=== PATIENT | female | born 1985 | race Two or more races ===

== ENCOUNTER 2020-08-02 19:22 | Inpatient (IN) | payer BC, OTHER ==
[~2020-08-02] VITALS: Ht 154.9 cm; Wt 70.9 kg
[2020-08-02] MEDS ORDERED: SODIUM CHLORIDE FLUSH 10ML SYR IVF ONE (20:00)
--- NOTE | 2020-08-02 21:11 | NUR ---
LAB CALLED RESULTED CRITICAL HEMOGLOBIN AND HCT; REPORT TO PROVIDE MD ZAMORANO. PATIENT WILL BE ROOMED AND LABS RECOLLECTED. PRIMARY RN JOAO AWARE.
[2020-08-02 22:33] LABS: MEAN CORPUSCULAR HGB CONC 35.4 g/dL (32.4-35.8); MEAN PLATELET VOLUME 8.5 fL (7.4-10.4); RED BLOOD COUNT 1.14 x10^6/uL (3.82-5.3); RED CELL DISTRIBUTION WIDTH 18.1 % (9.6-15.2)
[2020-08-02 22:36] LABS: ANION GAP 5 mmol/L (5-15); CALCIUM 8.8 mg/dL (8.5-10.1); CHLORIDE 111 mmol/L (98-107)
[2020-08-02 22:40] LABS: PLATELET COUNT 18 x10^3/uL (130-400)
--- NOTE | 2020-08-02 22:40 | NUR ---
PT TO ROOM FROM LOBBY
[2020-08-02 22:43] LABS: ALANINE AMINOTRANSFERASE 25 U/L (12-78); ALKALINE PHOSPHATASE 69 U/L (45-117); BILIRUBIN,TOTAL 0.7 mg/dL (0.2-1.0); CREATININE 0.72 mg/dL (0.55-1.02); TOTAL PROTEIN 7.4 g/dL (6.4-8.2)
--- NOTE | 2020-08-02 22:45 | NUR ---
patient arrives to the er with sob and weakness that began around , roughly two weeks ago. she's been having racing heart beat and some sob. she is in bed, rails up, on monitor.
[2020-08-02 22:59] LABS: MD YES
[2020-08-02] MEDS ORDERED: ACETAMINOPHEN 500 MG TABLET PO ONE (23:00)
--- NOTE | 2020-08-02 23:00 | NUR ---
placed on two liters nc
[2020-08-02 23:03] LABS: SEG#(MANUAL) 0.35 x10^3/uL (1.8-6.8); SEGS% (MANUAL) 15 % (42-75)
[2020-08-02 23:04] LABS: EOS#(MANUAL) 0.02 x10^3/uL (0.0-0.4); EOS% (MANUAL) 1 % (1-7); LYMPH#(MANUAL) 1.89 x10^3/uL (1-3.4); LYMPHS% (MANUAL) 82 % (22-44); MONOS#(MANUAL) 0.05 x10^3/uL (0.3-2.7); MONOS% (MANUAL) 2 % (2-9)
[2020-08-02 23:05] LABS: <PLATELET ESTIMATE> DECREASED; <PLT MORPHOLOGY> NORMAL PLT MORPH; ANISOCYTOSIS 2+; HYPOCHROMIA 2+; MICROCYTOSIS 2+; OVALOCYTES 1+; TEAR DROPS 1+
[2020-08-02 23:30] LABS: ABSOLUTE RETICS # 0.024 x10^6/uL (0.5-2.5); MEAN CORPUSCULAR HEMOGLOBIN 39.2 pg (27.0-34.8); MEAN CORPUSCULAR HGB CONC 35.8 g/dL (32.4-35.8); MEAN PLATELET VOLUME 8.7 fL (7.4-10.4); RED BLOOD COUNT 1.12 x10^6/uL (3.82-5.3); RED CELL DISTRIBUTION WIDTH 17.9 % (9.6-15.2); RETICULOCYTE COUNT % 2.16 % (0.5-1.5)
[2020-08-02 23:33] LABS: PLATELET COUNT 18 x10^3/uL (130-400)
[2020-08-02 23:34] LABS: MD YES
--- NOTE | 2020-08-02 23:34 | NUR ---
PATIENT CRITICAL LAB H/H AND PLATELETS RELAYED TO MD, THEY REMAINED LOW ON REDRAW.
[2020-08-02 23:58] LABS: SEG#(MANUAL) 0.21 x10^3/uL (1.8-6.8); SEGS% (MANUAL) 9 % (42-75)
[2020-08-02 23:59] LABS: ANISOCYTOSIS 2+; HYPOCHROMIA 2+; LYMPHS% (MANUAL) 87 % (22-44); MICROCYTOSIS 2+; MONOS#(MANUAL) 0.09 x10^3/uL (0.3-2.7); MONOS% (MANUAL) 4 % (2-9); OVALOCYTES 1+; TEAR DROPS 1+
[2020-08-03] VITALS (14 sets, daily range): BP systolic 97–115; BP diastolic 56–75
[2020-08-03] LABS: <PLATELET ESTIMATE> DECREASED; <PLT MORPHOLOGY> NORMAL PLT MORPH
--- NOTE | 2020-08-03 00:01 | NUR ---
report recieved from [facility]. pt resting in bed all monitors in place, pt alert/oriented, states no needs at this time
--- NOTE | 2020-08-03 00:25 | NUR ---
CALL RECIEVED FROM BLOOD BANK ASKING IF WE REALLY NEED IRRADIATED BLOOD FOR PT, BECAUSE IT HAS TO BE MADE AND UNSURE HOW LONG IT WILL TAKE. MD IS CURRENTLY AT CODE AND UNABLE TO ANSWER QUESTION, PA ON CASE ASKED AND SHE STATED TO WAIT FOR MD TO COME BACK. WILL FOLLOW UP CESARIO
[2020-08-03 00:36] LABS: INTERNATIONAL NORMALIZED RATIO 1.01 (0.93-1.1); PROTHROMBIN TIME 10.7 Seconds (9.6-11.5)
--- NOTE | 2020-08-03 01:35 | NUR ---
SEE BLOOD TRANSFUSION DOCUMENTION FOR RECENT VITALS.
--- NOTE | 2020-08-03 01:56 | NUR ---
REPORT GIVEN TO LOGAN GARCIA. PT AWARE AND ACCEPTING OF POC.
[2020-08-03] MEDS ORDERED: POLYETHYLENE GLYCOL 17 GM PACKET PO PRN (04:30)
[2020-08-03] MEDS ORDERED: ONDANSETRON ODT 4 MG PO PRN (04:30)
[2020-08-03] MEDS ORDERED: PROMETHAZINE 25 MG/ML, 1ML IM PRN (04:30)
[2020-08-03] MEDS ORDERED: BISACODYL 10 MG SUPP PR PRN (04:30)
[2020-08-03] MEDS ORDERED: ONDANSETRON 2MG/ML, 2ML IVPush PRN (04:30)
[2020-08-03] MEDS ORDERED: morphine SULFATE 10 MG/ML, 1ML IVPush PRN (04:30)
[2020-08-03] MEDS ORDERED: DOCUSATE 100 MG CAPSULE PO PRN (04:30)
[2020-08-03] MEDS ORDERED: OXYcodone IR 5MG TABLET PO PRN (04:30)
[2020-08-03] MEDS ORDERED: ACETAMINOPHEN 325 MG TABLET PO PRN (04:30)
[2020-08-03] MEDS: D5%-0.45% NACL 1,000 ML IV SCH ×2 (05:45→15:35)
[2020-08-03 08:09] LABS: FREE T4 (FREE THYROXINE) 0.97 ng/dL (0.76-1.46)
[2020-08-03 10:58] LABS: BASOPHILS % (AUTO) 0 % (0-1); EOSINOPHILS % (AUTO) 0 % (1-7); LYMPHOCYTES % (AUTO) 80 % (22-44); MEAN CORPUSCULAR HEMOGLOBIN 34.2 pg (27.0-34.8); MEAN CORPUSCULAR HGB CONC 35.9 g/dL (32.4-35.8); MEAN PLATELET VOLUME 8.8 fL (7.4-10.4); MONOCYTES % (AUTO) 4 % (2-9); NEUTROPHILS % (AUTO) 16 % (42-75); RED BLOOD COUNT 2.16 x10^6/uL (3.82-5.3); RED CELL DISTRIBUTION WIDTH 21.3 % (9.6-15.2)
[2020-08-03 12:06] LABS: PLATELET COUNT 14 x10^3/uL (130-400)
[2020-08-03 12:08] LABS: MD SCAN
[2020-08-03 12:53] LABS: MICROSCOPIC NOT IND
[2020-08-03 19:37] LABS: MEAN CORPUSCULAR HEMOGLOBIN 34.6 pg (27.0-34.8); MEAN CORPUSCULAR HGB CONC 35.9 g/dL (32.4-35.8); MEAN PLATELET VOLUME 8.4 fL (7.4-10.4); RED CELL DISTRIBUTION WIDTH 21.6 % (9.6-15.2)
[2020-08-03 19:49] LABS: PLATELET COUNT 16 x10^3/uL (130-400)
[2020-08-03 19:50] LABS: MD YES
[2020-08-03 22:13] LABS: SEG#(MANUAL) 0.24 x10^3/uL (1.8-6.8); SEGS% (MANUAL) 15 % (42-75)
[2020-08-03 22:14] LABS: BAND#(MANUAL) 0.02 x10^3/uL; BANDS%(MANUAL) 1 % (0-7); LYMPH#(MANUAL) 1.26 x10^3/uL (1-3.4); LYMPHS% (MANUAL) 79 % (22-44); MONOS#(MANUAL) 0.06 x10^3/uL (0.3-2.7); MONOS% (MANUAL) 4 % (2-9); MYELOCYTES# (MANUAL) 0.02 x10^3/uL (0-0); MYELOCYTES% (MANUAL) 1 % (0-0)
[2020-08-03 22:20] LABS: OVALOCYTES 1+; POLYCHROMASIA 1+; ROULEAUX 1+; TEAR DROPS 1+
[2020-08-03 22:21] LABS: <PLATELET ESTIMATE> DECREASED; <PLT MORPHOLOGY> QNS FOR PLT MORPH
[2020-08-04 01:24] VITALS: BP 102/64
[2020-08-04 06:18] LABS: MEAN CORPUSCULAR HGB CONC 35.7 g/dL (32.4-35.8); MEAN PLATELET VOLUME 8.8 fL (7.4-10.4); RED BLOOD COUNT 2.07 x10^6/uL (3.82-5.3)
[2020-08-04 06:31] LABS: ALBUMIN 3.4 g/dL (3.4-5.0); ANION GAP 5 mmol/L (5-15); CALCIUM 8.2 mg/dL (8.5-10.1); CHLORIDE 113 mmol/L (98-107)
[2020-08-04 06:32] VITALS: BP 100/64
[2020-08-04 06:34] LABS: ALANINE AMINOTRANSFERASE 20 U/L (12-78); ALKALINE PHOSPHATASE 60 U/L (45-117); BILIRUBIN,TOTAL 0.8 mg/dL (0.2-1.0); CHOL/HDL RATIO 2.8; CHOLESTEROL, TOTAL 99 mg/dL (140-239); CREATININE 0.74 mg/dL (0.55-1.02); HDL CHOL % 35 % (28-40); HDL CHOLESTEROL (DIRECT) 35 mg/dL (40-60); LDL CHOLESTEROL,CALCULATED 52 mg/dL (54-169); LDL/HDL RATIO 1.5 (0.5-3.0); TOTAL PROTEIN 6.4 g/dL (6.4-8.2); TRIGLYCERIDES 58 mg/dL (50-200); VLDL CHOLESTEROL 12 mg/dL (0-25)
[2020-08-04 06:35] LABS: PLATELET COUNT 14 x10^3/uL (130-400)
[2020-08-04 06:57] LABS: MD YES
[2020-08-04 06:59] LABS: SEG#(MANUAL) 0.24 x10^3/uL (1.8-6.8); SEGS% (MANUAL) 14 % (42-75)
[2020-08-04 07:02] LABS: ANISOCYTOSIS 1+; LYMPH#(MANUAL) 1.39 x10^3/uL (1-3.4); LYMPHS% (MANUAL) 82 % (22-44); MONOS#(MANUAL) 0.07 x10^3/uL (0.3-2.7); MONOS% (MANUAL) 4 % (2-9); OVALOCYTES 1+
[2020-08-04 07:03] LABS: <PLATELET ESTIMATE> DECREASED; <PLT MORPHOLOGY> QNS FOR PLT MORPH
[2020-08-04] MEDS ORDERED: LIDOCAINE 1%, 10ML ONE (08:38)
[2020-08-04] MEDS ORDERED: FENTANYL PF 100 MCG/2ML ONE (08:52)
[2020-08-04] MEDS ORDERED: MIDAZOLAM 1 MG/ML, 5ML ONE (08:52)
[2020-08-04] MEDS ORDERED: NALOXONE 1 MG/ML, 2ML ONE (08:52)
[2020-08-04] MEDS ORDERED: FLUMAZENIL 0.1 MG/1 ML, 5ML ONE (08:52)
[2020-08-04 13:39] VITALS: BP 105/62
[2020-08-04 15:14] LABS: MEAN CORPUSCULAR HEMOGLOBIN 34.1 pg (27.0-34.8); MEAN CORPUSCULAR HGB CONC 35.2 g/dL (32.4-35.8); MEAN PLATELET VOLUME 8.4 fL (7.4-10.4); RED BLOOD COUNT 2.09 x10^6/uL (3.82-5.3); RED CELL DISTRIBUTION WIDTH 20.9 % (9.6-15.2)
[2020-08-04 15:44] LABS: MD YES; PLATELET COUNT 17 x10^3/uL (130-400)
[2020-08-04 16:36] LABS: SEG#(MANUAL) 0.28 x10^3/uL (1.8-6.8); SEGS% (MANUAL) 20 % (42-75)
[2020-08-04 16:37] LABS: LYMPH#(MANUAL) 0.98 x10^3/uL (1-3.4); LYMPHS% (MANUAL) 70 % (22-44); MONOS#(MANUAL) 0.14 x10^3/uL (0.3-2.7); MONOS% (MANUAL) 10 % (2-9)
[2020-08-04 16:38] LABS: <PLATELET ESTIMATE> DECREASED; <PLT MORPHOLOGY> NORMAL PLT MORPH; ANISOCYTOSIS 2+; POLYCHROMASIA 1+
[2020-08-04 18:51] VITALS: BP 105/69
[2020-08-04 20:53] LABS: MEAN CORPUSCULAR HGB CONC 35.6 g/dL (32.4-35.8); MEAN PLATELET VOLUME 8.8 fL (7.4-10.4); RED BLOOD COUNT 2.26 x10^6/uL (3.82-5.3); RED CELL DISTRIBUTION WIDTH 20.4 % (9.6-15.2)
[2020-08-04 20:59] LABS: PLATELET COUNT 16 x10^3/uL (130-400)
[2020-08-04 21:37] LABS: MD YES
[2020-08-04 21:44] LABS: LYMPH#(MANUAL) 1.22 x10^3/uL (1-3.4); LYMPHS% (MANUAL) 81 % (22-44); MONOS#(MANUAL) 0.05 x10^3/uL (0.3-2.7); MONOS% (MANUAL) 3 % (2-9); SEG#(MANUAL) 0.24 x10^3/uL (1.8-6.8); SEGS% (MANUAL) 16 % (42-75)
[2020-08-04 21:45] LABS: ANISOCYTOSIS 1+; POLYCHROMASIA 1+
[2020-08-04 21:46] LABS: <PLATELET ESTIMATE> DECREASED; <PLT MORPHOLOGY> NORMAL PLT MORPH; TEAR DROPS 1+
[2020-08-05 01:50] VITALS: BP 95/58
[2020-08-05 05:37] LABS: MEAN CORPUSCULAR HEMOGLOBIN 34.1 pg (27.0-34.8); MEAN CORPUSCULAR HGB CONC 35.3 g/dL (32.4-35.8); MEAN PLATELET VOLUME 8.3 fL (7.4-10.4); RED BLOOD COUNT 2.22 x10^6/uL (3.82-5.3); RED CELL DISTRIBUTION WIDTH 20.5 % (9.6-15.2)
[2020-08-05 05:44] LABS: PLATELET COUNT 15 x10^3/uL (130-400)
[2020-08-05 06:12] LABS: MD YES
[2020-08-05 06:15] LABS: LYMPH#(MANUAL) 1.44 x10^3/uL (1-3.4); LYMPHS% (MANUAL) 80 % (22-44); MONOS#(MANUAL) 0.05 x10^3/uL (0.3-2.7); MONOS% (MANUAL) 3 % (2-9); SEG#(MANUAL) 0.31 x10^3/uL (1.8-6.8); SEGS% (MANUAL) 17 % (42-75)
[2020-08-05 06:16] LABS: <PLATELET ESTIMATE> DECREASED; <PLT MORPHOLOGY> NORMAL PLT MORPH; ANISOCYTOSIS 1+; OVALOCYTES 1+; TEAR DROPS 1+
[2020-08-05 07:54] VITALS: BP 104/63
[2020-08-05 13:47] VITALS: BP 110/60
[2020-08-05 20:06] VITALS: BP 109/65
[2020-08-06 00:58] VITALS: BP 100/55
[2020-08-06 06:49] VITALS: BP 98/58
[2020-08-06 07:35] LABS: MEAN CORPUSCULAR HEMOGLOBIN 34.1 pg (27.0-34.8); MEAN CORPUSCULAR HGB CONC 35.1 g/dL (32.4-35.8); MEAN PLATELET VOLUME 8.3 fL (7.4-10.4); RED BLOOD COUNT 2.16 x10^6/uL (3.82-5.3)
[2020-08-06 07:36] LABS: ANION GAP 5 mmol/L (5-15); CALCIUM 8.6 mg/dL (8.5-10.1); CHLORIDE 110 mmol/L (98-107)
[2020-08-06 09:59] LABS: MD YES; PLATELET COUNT 23 x10^3/uL (130-400)
[2020-08-06 10:05] LABS: LYMPH#(MANUAL) 1.25 x10^3/uL (1-3.4); LYMPHS% (MANUAL) 83 % (22-44); MONOS#(MANUAL) 0.02 x10^3/uL (0.3-2.7); MONOS% (MANUAL) 1 % (2-9); SEG#(MANUAL) 0.24 x10^3/uL (1.8-6.8); SEGS% (MANUAL) 16 % (42-75)
[2020-08-06 10:08] LABS: ANISOCYTOSIS 1+; OVALOCYTES 1+
[2020-08-06 10:09] LABS: <PLATELET ESTIMATE> DECREASED; <PLT MORPHOLOGY> NORMAL PLT MORPH
[2020-08-06 13:28] VITALS: BP 107/69
[2020-08-06] MEDS ORDERED: LEVOFLOXACIN 500 MG TABLET PO SCH (16:30)
[2020-08-06] MEDS ORDERED: ACYC-114 PO (16:45)
[2020-08-06] MEDS ORDERED: LEVO500T8 PO (16:45)
[2020-08-06] MEDS ORDERED: ACYCLOVIR 400 MG TABLET PO SCH (21:00)
== END 2020-08-06 18:46 | disposition home or self-care (01) | DRG 810 ==
LOC: ED 08-03 02:04 → EDIP 08-03 02:22 → 4NW 08-03 02:38
PROVIDERS: ADMIT Internal Medicine; ATTEND Internal Medicine
PROC: 30233N1 Transfusion of Nonautologous Red Blood Cells into Peripheral Vein, Percutaneous Approach (ICD-10-PCS; 2020-08-03)
PROC: 07DR3ZX Extraction of Iliac Bone Marrow, Percutaneous Approach, Diagnostic (ICD-10-PCS; principal; 2020-08-04)
DX: D61.818 Other pancytopenia (principal); K01.1 Impacted teeth; R53.81 Other malaise; Z20.828 Contact with and (suspected) exposure to other viral communicable diseases
CPT/HCPCS: 36415; 87806; 99285; J3490; 38222; 70450; 71045; 76700; 77012; 80048; 80053; 80061; 80074; 81003; 82607; 82728; 83036; 83540; 83550; 83615; 83735; 84439; 84443; 84466; 84703; 85014; 85018; 85025; 85045; 85060; 85097; 85610; 85730; 86747; 86850; 86880; 86900; 86923; 87040; 87635; 88237; 88264; 88280; 88305; 88311; 88313; 93005; 99156; 99157; G0378; J2250; J3010; G0475; J2310; P9040

== ENCOUNTER 2020-08-15 21:55 | Emergency (ER) | payer OTHER ==
[~2020-08-15] VITALS: Ht 154.9 cm; Wt 69.2 kg
[~2020-08-15 21:55] MED LIST: ACYC-114 PO; LEVO500T8 PO
[2020-08-15 23:06] LABS: MEAN CORPUSCULAR HEMOGLOBIN 33.3 pg (27.0-34.8); MEAN CORPUSCULAR HGB CONC 35.7 g/dL (32.4-35.8); MEAN PLATELET VOLUME 7.6 fL (7.4-10.4); PLATELET COUNT 82 x10^3/uL (130-400)
[2020-08-15 23:11] LABS: ALBUMIN 4.2 g/dL (3.4-5.0); ANION GAP 5 mmol/L (5-15); CALCIUM 9.2 mg/dL (8.5-10.1); CHLORIDE 108 mmol/L (98-107)
[2020-08-15 23:18] LABS: CREATININE 0.85 mg/dL (0.55-1.02); TROPONIN I < 0.015 ng/mL (0.000-0.045)
[2020-08-15 23:53] LABS: MD YES
[2020-08-16 00:02] LABS: BAND#(MANUAL) 0.03 x10^3/uL; BANDS%(MANUAL) 3 % (0-7); SEG#(MANUAL) 0.42 x10^3/uL (1.8-6.8); SEGS% (MANUAL) 38 % (42-75)
[2020-08-16 00:03] LABS: LYMPH#(MANUAL) 0.64 x10^3/uL (1-3.4); LYMPHS% (MANUAL) 58 % (22-44); MONOS#(MANUAL) 0.01 x10^3/uL (0.3-2.7); MONOS% (MANUAL) 1 % (2-9)
[2020-08-16 00:04] LABS: <PLATELET ESTIMATE> DECREASED; <PLT MORPHOLOGY> NORMAL PLT MORPH; ANISOCYTOSIS 1+; OVALOCYTES 1+; POLYCHROMASIA 1+
--- NOTE | 2020-08-16 00:06 | NUR ---
ALL TESTS RESULTED PT IS UP FOR RECHECK AT THIS TIME.
[2020-08-16 00:09] VITALS: BP 103/63
--- NOTE | 2020-08-16 00:31 | NUR ---
Patient given discharge instructions and they have confirmed that they understand the instructions. Patient ambulatory with steady gait.
== END 2020-08-16 00:42 | disposition home or self-care (01) ==
LOC: ED 08-16 00:13
DX: D61.9 Aplastic anemia, unspecified (principal); R07.2 Precordial pain; R06.00 Dyspnea, unspecified; R94.31 Abnormal electrocardiogram [ECG] [EKG]
CPT/HCPCS: 36415; 71045; 80048; 82040; 83880; 84484; 85025; 93005; 99285

== ENCOUNTER → 2020-08-31 | Outpatient (CLI) | payer OTHER | END | disposition home or self-care (01) | LOC: CVU 14:48 | PROVIDERS: ATTEND Internal Medicine Hematology & Oncology | DX: Z01.818 Encounter for other preprocedural examination (principal); D61.9 Aplastic anemia, unspecified | CPT/HCPCS: 93306 ==

== ENCOUNTER 2020-09-06 04:04 | Emergency (ER) | payer OTHER ==
[~2020-09-06] VITALS: Ht 154.9 cm; Wt 69.4 kg
--- NOTE | 2020-09-06 04:45 | NUR ---
Patient presents to ER c/o bleeding gums since noon yesterday. Patient has a hx of aplastic anemia. She states her last PLT count was 7 but normally her gums don't bleed. Patient denies any other symptoms aside from fatigue. Patient is in NAD. Respirations even and unlabored.
[2020-09-06 05:20] VITALS: BP 110/73
[2020-09-06 05:39] LABS: CHLORIDE 110 mmol/L (98-107)
[2020-09-06 05:46] LABS: ALANINE AMINOTRANSFERASE 21 U/L (12-78); ALBUMIN 4.2 g/dL (3.4-5.0); ALKALINE PHOSPHATASE 70 U/L (45-117); ANION GAP 5 mmol/L (5-15); BILIRUBIN,TOTAL 0.9 mg/dL (0.2-1.0); CALCIUM 9.2 mg/dL (8.5-10.1); CREATININE 0.73 mg/dL (0.55-1.02)
[2020-09-06 05:47] LABS: MEAN CORPUSCULAR HEMOGLOBIN 31.9 pg (27.0-34.8); MEAN CORPUSCULAR HGB CONC 36.5 g/dL (32.4-35.8); MEAN PLATELET VOLUME 8.9 fL (7.4-10.4); RED BLOOD COUNT 2.17 x10^6/uL (3.82-5.3); RED CELL DISTRIBUTION WIDTH 13.4 % (9.6-15.2)
[2020-09-06 06:03] LABS: PLATELET COUNT 7 x10^3/uL (130-400)
[2020-09-06 06:27] LABS: MD YES
[2020-09-06 06:33] LABS: EOS#(MANUAL) 0.02 x10^3/uL (0.0-0.4); EOS% (MANUAL) 2 % (1-7); LYMPH#(MANUAL) 1.09 x10^3/uL (1-3.4); LYMPHS% (MANUAL) 91 % (22-44); SEG#(MANUAL) 0.08 x10^3/uL (1.8-6.8); SEGS% (MANUAL) 7 % (42-75)
[2020-09-06 06:35] LABS: <PLATELET ESTIMATE> DECREASED; <PLT MORPHOLOGY> NORMAL PLT MORPH; ANISOCYTOSIS 1+; MICROCYTOSIS 1+; OVALOCYTES 1+
[2020-09-06 06:36] LABS: POLYCHROMASIA 1+
--- NOTE | 2020-09-06 06:57 | NUR ---
Report to LOGAN Woo. Patient care transferred.
--- NOTE | 2020-09-06 06:58 | NUR ---
RECEIVED REPORT FROM CESILIA FORD. PT LAYING ON GURNEY AWAKE & COMFORTABLE, RESPONDS APPROP TO STAFF, NAD, COMFORT MEASURES PROVIDED, CALL LIGHT WITHIN REACH.
--- NOTE | 2020-09-06 07:40 | NUR ---
Patient given discharge instructions and they have confirmed that they understand the instructions. Patient DC'd to infusion center via WC accompanied by Letitia (infusion nurse).
== END 2020-09-06 07:42 | disposition home or self-care (01) ==
LOC: ED 06:22
DX: D61.3 Idiopathic aplastic anemia (principal); K06.8 Other specified disorders of gingiva and edentulous alveolar ridge; D69.6 Thrombocytopenia, unspecified; D72.818 Other decreased white blood cell count
CPT/HCPCS: 36415; 80053; 85025; 99283

== ENCOUNTER 2021-01-21 15:34 | Inpatient (IN) | payer SELFPAY ==
[2021-01-21] VITALS (15 sets, daily range): BP systolic 113–124; BP diastolic 65–82
[~2021-01-21] VITALS: Ht 154.9 cm; Wt 74.9 kg
[~2021-01-21 15:34] MED LIST changes: -ACYC-114 PO; +ACYC-40 PO; +AMOX1TAB12 PO; +CYCL100C12 PO; +ELTR25TA PO; +ELTR50TA PO; +[UNRECOGNIZED DRUG - CODE] PO
[2021-01-21] MEDS ORDERED: SODIUM CHLORIDE FLUSH 10ML SYR IVF ONE (16:00)
[2021-01-21] MEDS ORDERED: SODIUM CHLORIDE 0.9% 1,000ML IVBOLUS ONE (16:00)
--- NOTE | 2021-01-21 16:06 | NUR ---
PT HERE FOR C/O SOB ON EXERTION X2 WEEKS, PT REPORTS HX ANEMIA AND BLOOD TRANSFUSIONS. PT ON ALL MONITORS. S/O OTHER AT BEDSIDE.
[2021-01-21 16:32] LABS: ALANINE AMINOTRANSFERASE 85 U/L (12-78); ALBUMIN 3.5 g/dL (3.4-5.0); ANION GAP 15 mmol/L (5-15); CALCIUM 8.4 mg/dL (8.5-10.1); CHLORIDE 105 mmol/L (98-107); CREATININE 0.78 mg/dL (0.55-1.02)
--- NOTE | 2021-01-21 16:32 | NUR ---
ATTEMPT FOR PIV X2 UNSUCCESSFUL. ADVANCED MANAGER AT BEDSIDE FOR U/S GUIDED PIV, PT NEEDS LAB REDRAW DO TO BLOOD CLOTTING PER LAB.
[2021-01-21 16:37] LABS: ALKALINE PHOSPHATASE 96 U/L (45-117); BILIRUBIN,TOTAL 0.8 mg/dL (0.2-1.0)
[2021-01-21 16:45] LABS: MEAN CORPUSCULAR HEMOGLOBIN 35.5 pg (27.0-34.8); MEAN CORPUSCULAR HGB CONC 36.4 g/dL (32.4-35.8); MEAN PLATELET VOLUME 7.6 fL (7.4-10.4); RED CELL DISTRIBUTION WIDTH 24.2 % (9.6-15.2)
[2021-01-21 16:48] LABS: MD YES; PLATELET COUNT 10 x10^3/uL (130-400)
[2021-01-21 17:15] LABS: BAND#(MANUAL) 0.02 x10^3/uL; BANDS%(MANUAL) 1 % (0-7); SEG#(MANUAL) 0.65 x10^3/uL (1.8-6.8); SEGS% (MANUAL) 27 % (42-75)
[2021-01-21 17:16] LABS: <PLATELET ESTIMATE> DECREASED; LYMPH#(MANUAL) 1.63 x10^3/uL (1-3.4); LYMPHS% (MANUAL) 68 % (22-44); MONOS% (MANUAL) 4 % (2-9)
[2021-01-21 17:17] LABS: <PLT MORPHOLOGY> NORMAL PLT MORPH
[2021-01-21 17:18] LABS: ANISOCYTOSIS 1+; HYPOCHROMIA 1+; MICROCYTOSIS 2+
[2021-01-21 17:19] LABS: OVALOCYTES 1+
--- NOTE | 2021-01-21 17:24 | NUR ---
[facility] TRANSFUSION INITIATED.
--- NOTE | 2021-01-21 17:39 | NUR ---
REPORT GIVEN TO MANOJ FORD.
[2021-01-21] MEDS ORDERED: ONDANSETRON ODT 4 MG PO PRN (20:00)
[2021-01-21] MEDS ORDERED: SUMATRIPTAN 25 MG TABLET PO PRN (20:00)
[2021-01-21] MEDS ORDERED: BISACODYL 10 MG SUPP PR PRN (20:00)
[2021-01-21] MEDS ORDERED: POLYETHYLENE GLYCOL 17 GM PACKET PO PRN (20:00)
[2021-01-22] VITALS (11 sets, daily range): BP systolic 103–123; BP diastolic 69–85
[2021-01-22] MEDS ORDERED: ACETAMINOPHEN 325 MG TABLET ONE (00:47)
[2021-01-22] MEDS ORDERED: DIPHENHYDRAMINE 25 MG CAPSULE PO ONE (01:00)
[2021-01-22] MEDS ORDERED: ACETAMINOPHEN 325 MG TABLET PO ONE (01:00)
[2021-01-22 06:41] LABS: MEAN CORPUSCULAR HEMOGLOBIN 30.3 pg (27.0-34.8); MEAN CORPUSCULAR HGB CONC 35.7 g/dL (32.4-35.8); MEAN PLATELET VOLUME 7.7 fL (7.4-10.4); RED BLOOD COUNT 2.39 x10^6/uL (3.82-5.3); RED CELL DISTRIBUTION WIDTH 14.3 % (9.6-15.2)
[2021-01-22 06:52] LABS: PLATELET COUNT 16 x10^3/uL (130-400)
[2021-01-22 06:53] LABS: MD YES
[2021-01-22 06:55] LABS: ALBUMIN 3.2 g/dL (3.4-5.0); ANION GAP 9 mmol/L (5-15); CHLORIDE 109 mmol/L (98-107)
[2021-01-22 06:58] LABS: ALANINE AMINOTRANSFERASE 105 U/L (12-78); ALKALINE PHOSPHATASE 103 U/L (45-117); BILIRUBIN,TOTAL 2.1 mg/dL (0.2-1.0); CREATININE 0.61 mg/dL (0.55-1.02); TOTAL PROTEIN 6.1 g/dL (6.4-8.2)
[2021-01-22 07:22] LABS: LYMPH#(MANUAL) 0.68 x10^3/uL (1-3.4); LYMPHS% (MANUAL) 75 % (22-44); MONOS#(MANUAL) 0.01 x10^3/uL (0.3-2.7); MONOS% (MANUAL) 1 % (2-9); SEG#(MANUAL) 0.22 x10^3/uL (1.8-6.8); SEGS% (MANUAL) 24 % (42-75)
[2021-01-22 07:23] LABS: <PLATELET ESTIMATE> DECREASED; <PLT MORPHOLOGY> NORMAL PLT MORPH; ANISOCYTOSIS 1+; HYPOCHROMIA 1+; MICROCYTOSIS 1+; OVALOCYTES 1+
[2021-01-22] MEDS: SENNA/DOCUSATE TABLET PO SCH (09:00)
[2021-01-23] VITALS (7 sets, daily range): BP systolic 107–116; BP diastolic 67–72
[2021-01-23] MEDS: SENNA/DOCUSATE TABLET PO SCH (09:00)
[2021-01-23 09:27] LABS: MEAN CORPUSCULAR HEMOGLOBIN 30.1 pg (27.0-34.8); MEAN CORPUSCULAR HGB CONC 35.8 g/dL (32.4-35.8); MEAN PLATELET VOLUME 8.7 fL (7.4-10.4); RED BLOOD COUNT 2.49 x10^6/uL (3.82-5.3); RED CELL DISTRIBUTION WIDTH 14.8 % (9.6-15.2)
[2021-01-23 09:48] LABS: MD YES; PLATELET COUNT 6 x10^3/uL (130-400)
[2021-01-23 09:54] LABS: ANISOCYTOSIS 1+; LYMPHS% (MANUAL) 69 % (22-44); MONOS#(MANUAL) 0.07 x10^3/uL (0.3-2.7); MONOS% (MANUAL) 5 % (2-9); OVALOCYTES 1+; SEG#(MANUAL) 0.34 x10^3/uL (1.8-6.8); SEGS% (MANUAL) 26 % (42-75)
[2021-01-23 09:56] LABS: MICROCYTOSIS 1+
[2021-01-23 09:57] LABS: <PLATELET ESTIMATE> DECREASED; <PLT MORPHOLOGY> NORMAL PLT MORPH
[2021-01-23] MEDS ORDERED: DIPHENHYDRAMINE 25 MG CAPSULE PO ONE (11:30)
[2021-01-23] MEDS ORDERED: ACETAMINOPHEN 325 MG TABLET PO ONE (11:30)
[2021-01-23 19:50] LABS: MICROSCOPIC AUTO
[2021-01-24] VITALS (10 sets, daily range): BP systolic 106–126; BP diastolic 67–83
[2021-01-24 05:08] LABS: ABSOLUTE RETICS # 0.018 x10^6/uL (0.5-2.5); ALBUMIN 3.1 g/dL (3.4-5.0); ANION GAP 5 mmol/L (5-15); CALCIUM 8.4 mg/dL (8.5-10.1); CHLORIDE 112 mmol/L (98-107); RED BLOOD COUNT 2.23 x10^6/uL (3.82-5.3); RETICULOCYTE COUNT % 0.82 % (0.5-1.5)
[2021-01-24 05:13] LABS: ALANINE AMINOTRANSFERASE 70 U/L (12-78); ALKALINE PHOSPHATASE 90 U/L (45-117); CREATININE 0.57 mg/dL (0.55-1.02); TOTAL PROTEIN 5.9 g/dL (6.4-8.2)
[2021-01-24 06:50] LABS: MEAN CORPUSCULAR HEMOGLOBIN 30.2 pg (27.0-34.8); MEAN CORPUSCULAR HGB CONC 35.8 g/dL (32.4-35.8); MEAN PLATELET VOLUME 9.2 fL (7.4-10.4); RED BLOOD COUNT 2.24 x10^6/uL (3.82-5.3)
[2021-01-24 06:54] LABS: MD YES; PLATELET COUNT 9 x10^3/uL (130-400)
[2021-01-24 07:33] LABS: LYMPH#(MANUAL) 1.19 x10^3/uL (1-3.4); LYMPHS% (MANUAL) 85 % (22-44); MONOS#(MANUAL) 0.06 x10^3/uL (0.3-2.7); MONOS% (MANUAL) 4 % (2-9); SEG#(MANUAL) 0.15 x10^3/uL (1.8-6.8); SEGS% (MANUAL) 11 % (42-75)
[2021-01-24 07:34] LABS: <PLATELET ESTIMATE> DECREASED; <PLT MORPHOLOGY> NORMAL PLT MORPH; ANISOCYTOSIS 1+; OVALOCYTES 1+
[2021-01-24] MEDS: SENNA/DOCUSATE TABLET PO SCH (09:00)
[2021-01-24] MEDS ORDERED: ACETAMINOPHEN 325 MG TABLET PO ONE (11:30)
[2021-01-24] MEDS ORDERED: DIPHENHYDRAMINE 25 MG CAPSULE PO ONE (11:30)
[2021-01-24] MEDS ORDERED: LEVOFLOXACIN 500 MG TABLET PO SCH (22:30)
[2021-01-24] MEDS: FLUCONAZOLE 200 MG TABLET PO SCH (23:21)
[2021-01-24] MEDS: ACYCLOVIR 400 MG TABLET PO SCH (23:21)
[2021-01-25] VITALS (8 sets, daily range): BP systolic 116–130; BP diastolic 73–88
[2021-01-25] MEDS: ACYCLOVIR 400 MG TABLET PO SCH ×2 (09:29→21:08)
[2021-01-25] MEDS: SENNA/DOCUSATE TABLET PO SCH (09:30)
[2021-01-25 09:31] LABS: MEAN CORPUSCULAR HEMOGLOBIN 30.1 pg (27.0-34.8); MEAN CORPUSCULAR HGB CONC 35.9 g/dL (32.4-35.8); RED BLOOD COUNT 2.86 x10^6/uL (3.82-5.3)
[2021-01-25 09:45] LABS: MD YES
[2021-01-25 09:50] LABS: <PLATELET ESTIMATE> DECREASED; <PLT MORPHOLOGY> QNS FOR PLT MORPH; ANISOCYTOSIS 1+; BAND#(MANUAL) 0.02 x10^3/uL; BANDS%(MANUAL) 2 % (0-7); LYMPH#(MANUAL) 0.97 x10^3/uL (1-3.4); LYMPHS% (MANUAL) 81 % (22-44); MONOS#(MANUAL) 0.08 x10^3/uL (0.3-2.7); MONOS% (MANUAL) 7 % (2-9); OVALOCYTES 1+; SEG#(MANUAL) 0.12 x10^3/uL (1.8-6.8); SEGS% (MANUAL) 10 % (42-75)
[2021-01-25 09:53] LABS: PLATELET COUNT 6 x10^3/uL (130-400)
[2021-01-25] MEDS: ACETAMINOPHEN 325 MG TABLET PO PRN (12:33)
[2021-01-25] MEDS: DIPHENHYDRAMINE 25 MG CAPSULE PO PRN (12:33)
[2021-01-25] MEDS: FLUCONAZOLE 200 MG TABLET PO SCH (23:05)
[2021-01-26 00:09] VITALS: BP 145/91
[2021-01-26 05:06] LABS: MEAN CORPUSCULAR HEMOGLOBIN 30.1 pg (27.0-34.8); MEAN CORPUSCULAR HGB CONC 35.8 g/dL (32.4-35.8); MEAN PLATELET VOLUME 7.4 fL (7.4-10.4); RED BLOOD COUNT 3.06 x10^6/uL (3.82-5.3); RED CELL DISTRIBUTION WIDTH 14.1 % (9.6-15.2)
[2021-01-26 05:54] LABS: MD YES; PLATELET COUNT 43 x10^3/uL (130-400)
[2021-01-26 06:14] LABS: LYMPH#(MANUAL) 1.39 x10^3/uL (1-3.4); LYMPHS% (MANUAL) 87 % (22-44); MONOS#(MANUAL) 0.05 x10^3/uL (0.3-2.7); MONOS% (MANUAL) 3 % (2-9); SEG#(MANUAL) 0.16 x10^3/uL (1.8-6.8); SEGS% (MANUAL) 10 % (42-75)
[2021-01-26 06:15] LABS: <PLATELET ESTIMATE> DECREASED; ANISOCYTOSIS 1+; OVALOCYTES 1+
[2021-01-26 06:16] LABS: <PLT MORPHOLOGY> NORMAL PLT MORPH
[2021-01-26 06:47] VITALS: BP 121/71
[2021-01-26] MEDS: SENNA/DOCUSATE TABLET PO SCH (08:33)
[2021-01-26] MEDS: ACYCLOVIR 400 MG TABLET PO SCH ×2 (09:17→20:41)
[2021-01-26 12:58] VITALS: BP 117/76
[2021-01-26 18:37] VITALS: BP 118/78
[2021-01-26] MEDS: FLUCONAZOLE 200 MG TABLET PO SCH (22:38)
[2021-01-27 00:19] VITALS: BP 132/85
[2021-01-27 05:49] LABS: MEAN PLATELET VOLUME 7.7 fL (7.4-10.4); RED BLOOD COUNT 3.25 x10^6/uL (3.82-5.3)
[2021-01-27 06:04] LABS: PLATELET COUNT 24 x10^3/uL (130-400)
[2021-01-27 06:22] LABS: MD YES
[2021-01-27 06:26] LABS: LYMPH#(MANUAL) 1.23 x10^3/uL (1-3.4); LYMPHS% (MANUAL) 82 % (22-44); MONOS#(MANUAL) 0.08 x10^3/uL (0.3-2.7); MONOS% (MANUAL) 5 % (2-9); SEGS% (MANUAL) 13 % (42-75)
[2021-01-27 06:27] LABS: <PLATELET ESTIMATE> DECREASED; <PLT MORPHOLOGY> NORMAL PLT MORPH; ANISOCYTOSIS 1+; OVALOCYTES 1+
[2021-01-27 07:30] VITALS: BP 113/75
[2021-01-27] MEDS: SENNA/DOCUSATE TABLET PO SCH (09:00)
[2021-01-27] MEDS: ACYCLOVIR 400 MG TABLET PO SCH ×2 (10:18→22:08)
[2021-01-27] MEDS ORDERED: MEDROXYPROGESTERONE ACETATE 150 MG/ML IM ONE (14:00)
[2021-01-27 15:46] VITALS: BP 107/70
[2021-01-27 19:21] VITALS: BP 124/80
[2021-01-27] MEDS: FLUCONAZOLE 200 MG TABLET PO SCH (22:07)
[2021-01-28] VITALS (7 sets, daily range): BP systolic 107–129; BP diastolic 64–80
[2021-01-28 05:40] LABS: MEAN CORPUSCULAR HEMOGLOBIN 29.7 pg (27.0-34.8); MEAN CORPUSCULAR HGB CONC 35.4 g/dL (32.4-35.8); MEAN PLATELET VOLUME 8.9 fL (7.4-10.4); RED BLOOD COUNT 3.37 x10^6/uL (3.82-5.3); RED CELL DISTRIBUTION WIDTH 13.7 % (9.6-15.2)
[2021-01-28 06:08] LABS: MD YES; PLATELET COUNT 7 x10^3/uL (130-400)
[2021-01-28 06:30] LABS: LYMPH#(MANUAL) 1.16 x10^3/uL (1-3.4); LYMPHS% (MANUAL) 68 % (22-44); MONOS#(MANUAL) 0.15 x10^3/uL (0.3-2.7); MONOS% (MANUAL) 9 % (2-9); SEG#(MANUAL) 0.39 x10^3/uL (1.8-6.8); SEGS% (MANUAL) 23 % (42-75)
[2021-01-28 06:31] LABS: <PLATELET ESTIMATE> DECREASED; <PLT MORPHOLOGY> NORMAL PLT MORPH; ANISOCYTOSIS 1+; OVALOCYTES 1+
[2021-01-28] MEDS: ACETAMINOPHEN 325 MG TABLET PO PRN (10:25)
[2021-01-28] MEDS: ACYCLOVIR 400 MG TABLET PO SCH ×2 (10:25→20:24)
[2021-01-28] MEDS: SENNA/DOCUSATE TABLET PO SCH (10:25)
[2021-01-28] MEDS: DIPHENHYDRAMINE 25 MG CAPSULE PO PRN (10:25)
[2021-01-28] MEDS: FLUCONAZOLE 200 MG TABLET PO SCH (20:24)
[2021-01-29 02:00] VITALS: BP 114/75
[2021-01-29 05:12] LABS: MEAN CORPUSCULAR HEMOGLOBIN 30.1 pg (27.0-34.8); MEAN CORPUSCULAR HGB CONC 36.1 g/dL (32.4-35.8); MEAN PLATELET VOLUME 9.8 fL (7.4-10.4); RED BLOOD COUNT 3.37 x10^6/uL (3.82-5.3); RED CELL DISTRIBUTION WIDTH 13.5 % (9.6-15.2)
[2021-01-29 06:04] LABS: MD YES; PLATELET COUNT 21 x10^3/uL (130-400)
[2021-01-29 06:07] LABS: EOS#(MANUAL) 0.02 x10^3/uL (0.0-0.4); EOS% (MANUAL) 1 % (1-7); LYMPH#(MANUAL) 1.87 x10^3/uL (1-3.4); LYMPHS% (MANUAL) 78 % (22-44); MONOS#(MANUAL) 0.12 x10^3/uL (0.3-2.7); MONOS% (MANUAL) 5 % (2-9); REACTIVE LYMPHS # (MANUAL) 0.02 x10^3/uL (0-0); REACTIVE LYMPHS % (MANUAL) 1 % (0-0); SEG#(MANUAL) 0.36 x10^3/uL (1.8-6.8); SEGS% (MANUAL) 15 % (42-75)
[2021-01-29 06:08] LABS: ANISOCYTOSIS 1+; OVALOCYTES 1+
[2021-01-29 06:09] LABS: <PLATELET ESTIMATE> DECREASED; <PLT MORPHOLOGY> NORMAL PLT MORPH
[2021-01-29 07:00] VITALS: BP 104/69
[2021-01-29] MEDS: SENNA/DOCUSATE TABLET PO SCH (09:14)
[2021-01-29] MEDS: ACYCLOVIR 400 MG TABLET PO SCH (09:14)
[2021-01-29 15:02] VITALS: BP 106/71
== END 2021-01-29 17:23 | disposition home or self-care (01) | DRG 809 ==
LOC: ED 17:51 → ORIP 18:08 → 4NW 18:09
PROVIDERS: ADMIT Internal Medicine; ATTEND Family Medicine
PROC: 30233R1 Transfusion of Nonautologous Platelets into Peripheral Vein, Percutaneous Approach (ICD-10-PCS; principal; 2021-01-21)
PROC: 30233N1 Transfusion of Nonautologous Red Blood Cells into Peripheral Vein, Percutaneous Approach (ICD-10-PCS; 2021-01-21)
DX: D61.818 Other pancytopenia (principal); E87.2 Acidosis; Z83.3 Family history of diabetes mellitus; Z91.19 Patient's noncompliance with other medical treatment and regimen; Z88.1 Allergy status to other antibiotic agents
CPT/HCPCS: 36415; 36430; 71045; 76700; 80053; 80074; 81001; 82728; 83540; 83550; 83735; 84100; 84703; 85014; 85018; 85025; 85045; 86850; 86900; 86923; 93005; 96360; 99291; G0378; J1050; J7030; P9037; P9040; Q0163